=== PATIENT | female | born 1935 | race Caucasian/White ===

== ENCOUNTER 2016-11-02 10:00 | Outpatient (CLI) | payer OTHER ==
--- NOTE | 2016-11-02 12:16 | DIAGNOSTIC IMAGING REPORT ---
PROCEDURE: US BILATERAL CAROTID DOPPLER INDICATION: TIA TECHNIQUE: Color Doppler duplex imaging of the carotid and vertebral vessels. COMPARISON: None. FINDINGS: Minimal plaque bilaterally Right carotid system: No significant stenosis visualized. The waveforms are normal. Left carotid system: No significant stenosis visualized. The waveforms are normal. Vertebral System: Antegrade vertebral artery flow bilaterally. Right common carotid artery peak systolic velocity 71 cm/second. Right internal carotid artery peak systolic velocity 85 cm/second. Right external carotid artery peak systolic velocity 89 cm/second. Right frdrmhvl-ez-iuvxvo carotid artery ratio 0.8 Right vertebral artery peak systolic velocity 54 cm/second. Left common carotid artery peak systolic velocity 59 cm/second. Left internal carotid artery peak systolic velocity 92 cm/second. Left external carotid artery peak systolic velocity 78 cm/second. Left qwajejxe-py-vyfpmn carotid artery ratio 1.2 Left vertebral artery peak systolic velocity 51 cm/second. IMPRESSION: 1. No hemodynamically significant stenosis in either carotid system. 2. Antegrade vertebral artery flow bilaterally. Velocity criteria are extrapolated from diameter data as defined by the Society of Radiologists in Ultrasound Consensus Conference, Radiology 2003; 229; 340-346.
--- NOTE | 2016-11-02 12:16 | DIAGNOSTIC IMAGING REPORT ---
PROCEDURE: US BILATERAL CAROTID DOPPLER INDICATION: TIA TECHNIQUE: Color Doppler duplex imaging of the carotid and vertebral vessels. COMPARISON: None. FINDINGS: Minimal plaque bilaterally Right carotid system: No significant stenosis visualized. The waveforms are normal. Left carotid system: No significant stenosis visualized. The waveforms are normal. Vertebral System: Antegrade vertebral artery flow bilaterally. Right common carotid artery peak systolic velocity 71 cm/second. Right internal carotid artery peak systolic velocity 85 cm/second. Right external carotid artery peak systolic velocity 89 cm/second. Right sbclxgdm-od-gaqkeh carotid artery ratio 0.8 Right vertebral artery peak systolic velocity 54 cm/second. Left common carotid artery peak systolic velocity 59 cm/second. Left internal carotid artery peak systolic velocity 92 cm/second. Left external carotid artery peak systolic velocity 78 cm/second. Left adlspmyy-dr-szappg carotid artery ratio 1.2 Left vertebral artery peak systolic velocity 51 cm/second. IMPRESSION: 1. No hemodynamically significant stenosis in either carotid system. 2. Antegrade vertebral artery flow bilaterally. Velocity criteria are extrapolated from diameter data as defined by the Society of Radiologists in Ultrasound Consensus Conference, Radiology 2003; 229; 340-346.
== END 2016-11-02 23:00 ==
LOC: US SRH 10:00
DX: G45.9 Transient cerebral ischemic attack, unspecified (principal)

== ENCOUNTER 2016-12-12 19:07 | Emergency (ER) | payer OTHER ==
--- NOTE | 2016-12-12 22:00 | ED CLINICAL REPORT ---
Clinical Report - Physicians/Mid Levels [facility] [address] [place] [address] 12/12/2016 19:07 Patient: AMANUEL EATON Time Seen: 2009. Arrived- By private vehicle. Historian- patient. HISTORY OF PRESENT ILLNESS Chief Complaint: BLEEDING FROM EAR. Modifying factors. Not worsened by anything. Not relieved by anything. This started today and is now gone. The patient cannot recall the circumstances at the onset. Location- right ear. The patient has not had pain. The patient has a foreign body in the right ear (Wears hearing aids.). No ear pain or drainage, hearing loss or nasal discharge or congestion. No sinus pressure or ear trauma. Similar symptoms previously: None. Recent medical care: Not recently seen/assessed. REVIEW OF SYSTEMS No fever, chills, difficulty breathing, headache or skin rash. No abdominal pain, black stools or bloody stools. She has had easy bruising. All systems otherwise negative, except as recorded above. PAST HISTORY COPD - Chronic Obstructive Pulmonary Disease. Diabetes Mellitus. Congestive Heart Failure. Lumbar Radiculopathy. UTI - Urinary Tract Infection. Paresthesia. Superficial Thrombophlebitis. Bronchitis. Arthritis. GI Bleeding. Asthma. ADDITIONAL SURGERIES: Hip Prosthesis. Pacemaker. Tonsillectomy. Total Hip Replacement. SOCIAL HISTORY Never smoker. Occasional alcohol use. No drug use. ADDITIONAL NOTES The nursing notes have been reviewed. PHYSICAL EXAM Vital Signs: 12/12/2016 19:10 BP: 179/81. HR: 82. RR: 14. O2 saturation: 97%. Temp: 98.4 F. Have been reviewed. Hypertensive. Heart rate normal. Respiratory rate normal. Temperature normal. Oxygen saturation normal. Appearance: Alert. No acute distress. Eyes: Eyes normal inspection. No redness on the right or redness on the left. Ear (right): There is discharge in the external canal (No active bleeding). No tenderness of the auricle, pain with movement of the auricle, lymphadenopathy, erythema of the external canal or swelling of the external canal. Right tympanic membrane normal. Normal mastoid. Ear (left): Left ear normal. Left tympanic membrane normal. CVS: Abnormal rhythm, which is irregularly irregular. Heart sounds normal. Rate normal. Respiratory: No respiratory distress. Breath sounds normal. Abdomen: Soft and nontender. Skin: Normal skin color. No rash. Extremities: No lower extremity edema. Neuro: Oriented X 3. LABS, X-RAYS, AND EKG Laboratory Tests: UA-Culture if indicated: (MAGDA: 12/12/2016 21:00) ( MsgRcvd 12/12/2016 21:21) Final results Test Result Flag Units (Reference) URINE COLOR YELLOW URINE APPEARANCE SL CLOUDY URINE GLUCOSE NEGATIVE (NEGATIVE) URINE BILIRUBIN NEGATIVE (NEGATIVE) URINE KETONE NEGATIVE (NEGATIVE) URINE SPECIFIC GRAVITY 1.015 (1.010-1.030) URINE PH 6.5 (5.0-8.0) URINE PROTEIN NEGATIVE (NEGATIVE) URINE UROBILINOGEN 0.2 EU/dL (0.2-1.0) URINE NITRITE POSITIVE (NEGATIVE) URINE BLOOD TRACE-LYSED (NEGATIVE) URINE LEUK ESTERASE POSITIVE (NEGATIVE) URINE RBC NONE SEEN rbc/hpf (0-1) URINE WBC 25-50 wbc/hpf (0-1) URINE EPITHELIAL CELLS 0-1 EPI/hpf (0-5) URINE BACTERIA MANY (4+) (NONE SEEN) URINE COMMENT CULTURE INDICATED URINE CULTURES ARE SET-UP BASED ON THE FOLLOWING CRITERIA:POSITIVE NITRITEPOSITIVE LEUKOCYTE ESTERASEGREATER THAN 10 WHITE BLOOD CELLSMODERATE (2+) OR GREATER BACTERIA CBC w Diff: (MAGDA: 12/12/2016 20:05) ( MsgRcvd 12/12/2016 20:25) Final results Test Result Flag Units (Reference) WHITE BLOOD COUNT 7.3 K/uL (4.5-11.5) RED BLOOD COUNT 4.36 M/uL (4.00-5.20) HEMOGLOBIN 12.7 gm/dL (12.0-16.0) HEMATOCRIT 37.4 % (36.0-46.0) MEAN CELL VOLUME 86 fL (80-100) MEAN CORPUSCULAR HGB 29 pg (26-34) MEAN CORPUSCULAR HGB CONC 34 g/dL (31-37) RED CELL DISTRIBUTION WIDTH 15.8 H % (11.6-14.8) PLATELET COUNT 328 K/uL (150-400) NEUTROPHIL % 54.0 % (50-75) LYMPH % 29.0 % (25-40) MONO % 9.1 % (3-14) EOSINOPHIL % 6.8 H % (0-4) BASOPHIL % 1.1 % (0-2) PTT: (MAGDA: 12/12/2016 20:05) ( [facility] 12/12/2016 20:48) Final results Test Result Flag Units (Reference) APTT 41 H SECONDS (24-34) PT with INR: (MAGDA: 12/12/2016 20:05) ( [facility] 12/12/2016 20:29) Final results Test Result Flag Units (Reference) INR 2.6 H (0.8-1.2) Low Intensity Therapy: INR 1.5-2.0 PT range 18.5-23.1Mod.Intensity Therapy: INR 2.0-3.0 PT range 23.1-31.5High Intensity Therapy: INR 2.5-3.5 PT range 27.4-35.5High Intensity Therapy 2: INR 3.0-4.0 PT range 31.5-39.3 Lipase: (MAGDA: 12/12/2016 20:05) ( [facility] 12/12/2016 20:51) Final results Test Result Flag Units (Reference) LIPASE 133 U/L (73-393) AMYLASE 85 U/L (25-115) CMP: (MAGDA: 12/12/2016 20:05) ( [facility] 12/12/2016 20:38) Final results Test Result Flag Units (Reference) GLUCOSE 104 mg/dL (70-110) BUN 30 H mg/dL (7-18) CREATININE 1.0 mg/dL (0.6-1.3) Estimated GFR 56.28 mL/min Estimated GFR- >60 mL/min Note: Persistent reduction over 3 months in eGFR<60 mL/min/1.73 m2 defines CKD. Patients with eGFR values>=60 mL/min/1.73 m2 may also have CKD if evidence ofpersistent proteinuria. Additional information may be foundat www.kidney.org. SODIUM 134 L mmol/L (136-145) POTASSIUM 3.6 mmol/L (3.5-5.1) CHLORIDE 100 mmol/L (98-107) CARBON DIOXIDE 25 mmol/L (21-32) CALCIUM 9.2 mg/dL (8.5-10.1) TOTAL PROTEIN 7.5 g/dL (6.4-8.2) ALBUMIN 4.2 g/dL (3.3-5.0) BILIRUBIN, TOTAL 0.6 mg/dL (0.0-1.0) ALKALINE PHOSPHATASE 85 U/L (46-116) AST (SGOT) 23 U/L (15-37) ALT (SGPT) 29 U/L (12-78) . PROGRESS AND PROCEDURES Disposition: Discharged home in good and improved condition. Condition: good. CLINICAL IMPRESSION Oral anticoagulation therapy with therapeutic INR. Acute urinary tract infection with cystitis. (Bleeding from R ear canal Primary Dx). INSTRUCTIONS Your Current Medications: CONTINUE TAKING THE FOLLOWING MEDICATIONS: B-12 Oral : Tablet 2500 mcg, 1 tablet daily. D-3* : 5000IU daily. Diltiazem HCl Oral : Tablet 120 mg, 1 tablet daily. Hydrochlorothiazide Oral : 60mg daily. Losartan Potassium Oral : 100 mg daily. Pravastatin Sodium Oral : 40 mg daily. Warfarin Sodium Oral : 7.5 mg daily, 10mg on Sundays. Follow-up: Follow up with your doctor in about two days. Call for an appointment. Blood pressure screening was not performed during this visit because the patient has an active diagnosis of hypertension. (Electronically signed by Bin Oh Dr. 12/12/2016 22:02)
--- NOTE | 2016-12-12 22:01 | ED ORDER SUMMARY ---
..... Patient: AMANUEL EATON OrderSheet [facility] VisitID: [id number] [place] [address] 81y, F Registration Date/Time: 12/12/2016 ORDER SHEET Weight: 93.4 kg (stated) Allergies: Sulfa Antibiotics GENERAL ORDERS: Drone Operator (Continuous) (A-fib) (20:11 12/12/2016 JQuivey R.N. per protocol) (20:18 JQuivey R.N.) CBC w Diff Urgent (20:11 12/12/2016 JQuivey R.N. per protocol) (Ack 20:13 CHagerty ER Pediatric Sports Medicine Specialist) (20:18 ALawrence ER Tech1) CMP Urgent (20:11 12/12/2016 JQuivey R.N. per protocol) (Ack 20:13 CHagerty ER Pediatric Sports Medicine Specialist) (20:18 ALawrence ER Tech1) PT with INR Urgent (20:11 12/12/2016 JQuivey R.N. per protocol) (Ack 20:13 CHagerty ER Pediatric Sports Medicine Specialist) (20:18 ALawrence ER Tech1) PTT Urgent (20:27 12/12/2016 Shayy FELIPE) (20:28 CHagerty ER Pediatric Sports Medicine Specialist) (Ack 20:29 SRedmond) Amylase Urgent (20:27 12/12/2016 Shayy FELIPE) (20:28 CHagerty ER Pediatric Sports Medicine Specialist) (Ack 20:29 SRedmond) Lipase Urgent (20:27 12/12/2016 Shayy FELIPE) (20:28 CHagerty ER Pediatric Sports Medicine Specialist) (Ack 20:29 SRedmond) UA-Culture if indicated Urgent (21:05 12/12/2016 JQuivey R.N. per protocol) (Ack 21:06 SRedmond) (21:32 JQuivey R.N.) MEDICATION ORDERS: Ciprofloxacin PO 500 mg (NOW) (21:55 12/12/2016 Jose Stoddard) (Ack 22:03 JQuivey R.N.) (22:11 JQuivey R.N.) IV FLUIDS: IV Saline Lock (20:11 12/12/2016 JQuivey R.N. per protocol) (20:19 Courtney Choi) ORDER SHEET NOTES: [Electronically signed by Bin Oh Dr. (22:02 12/12/2016)] [Electronically signed by Abraham Recinos R.N. (22:48 12/12/2016)] [Electronically locked/signed by Abraham Recinos R.N. (22:48 12/12/2016)]
--- NOTE | 2016-12-12 22:01 | ED ORDER SUMMARY ---
..... Patient: AMANUEL EATON OrderSheet [facility] VisitID: [id number] [place] [address] 81y, F Registration Date/Time: 12/12/2016 ORDER SHEET Weight: 93.4 kg (stated) Allergies: Sulfa Antibiotics GENERAL ORDERS: Computer Forensic Examiner (Continuous) (A-fib) (20:11 12/12/2016 JQuivey R.N. per protocol) (20:18 JQuivey R.N.) CBC w Diff Urgent (20:11 12/12/2016 JQuivey R.N. per protocol) (Ack 20:13 CHagerty ER Supervisor Customer Complaint Service) (20:18 ALawrence ER Tech1) CMP Urgent (20:11 12/12/2016 JQuivey R.N. per protocol) (Ack 20:13 CHagerty ER Supervisor Customer Complaint Service) (20:18 ALawrence ER Tech1) PT with INR Urgent (20:11 12/12/2016 JQuivey R.N. per protocol) (Ack 20:13 CHagerty ER Supervisor Customer Complaint Service) (20:18 ALawrence ER Tech1) PTT Urgent (20:27 12/12/2016 Shayy FELIPE) (20:28 CHagerty ER Supervisor Customer Complaint Service) (Ack 20:29 SRedmond) Amylase Urgent (20:27 12/12/2016 Shayy FELIPE) (20:28 CHagerty ER Supervisor Customer Complaint Service) (Ack 20:29 SRedmond) Lipase Urgent (20:27 12/12/2016 Shayy FELIPE) (20:28 CHagerty ER Supervisor Customer Complaint Service) (Ack 20:29 SRedmond) UA-Culture if indicated Urgent (21:05 12/12/2016 JQuivey R.N. per protocol) (Ack 21:06 SRedmond) (21:32 JQuivey R.N.) MEDICATION ORDERS: Ciprofloxacin PO 500 mg (NOW) (21:55 12/12/2016 Jose Stoddard) (Ack 22:03 JQuivey R.N.) (22:11 JQuivey R.N.) IV FLUIDS: IV Saline Lock (20:11 12/12/2016 JQuivey R.N. per protocol) (20:19 Courtney Choi) ORDER SHEET NOTES: [Electronically signed by Bin Oh Dr. (22:02 12/12/2016)] [Electronically signed by Abraham Recinos R.N. (22:48 12/12/2016)] [Electronically locked/signed by Abraham Recinos R.N. (22:48 12/12/2016)]
--- NOTE | 2016-12-12 22:01 | ED NURSING NOTES ---
Clinical Report - Nurses [facility] [address] [place] [address] 12/12/2016 19:07 Patient: AMANUEL EATON TRIAGE Triage time 19:10. Chief Complaint: CONSTIPATION and BLACK STOOLS (Bleeding from right ear). --19:23 Joe Simms R.N. 19:10 12/12/16. BP: 179/81. HR: 82. RR: 14. O2 saturation: 97%. Temp: 98.4 F. --19:23 Joe Simms R.N. Chief Complaint: (Bleeding from right ear. bruise under right eye. INR high at last reading 3 wk ago.). --19:24 Joe Simms R.N. Weight: 93.4 kg stated. Height/Length: 66 inches Per Patient. BMI: 33.3. --22:14 Abraham Recinos R.N. Medications B-12 Oral (Tablet 2500 mcg) 1 tablet, daily. --20:14 Abraham Recinos R.N. D-3 5000IU, daily. --20:14 Abraham Recinos R.N. Warfarin Sodium Oral 7.5 mg, daily (10mg on Sundays). --20:15 Abraham Recinos R.N. Losartan Potassium Oral 100 mg, daily. --20:16 Abraham Recinos R.N. Pravastatin Sodium Oral 40 mg, daily. --20:16 Abraham Recinos R.N. Diltiazem HCl Oral (Tablet 120 mg) 1 tablet, daily. --20:16 Abraham Recinos R.N. Hydrochlorothiazide Oral 60mg , daily. --20:16 Abraham Recinos R.N. Medication/allergy information source: the patient. --19:23 Joe Simms R.N. Allergies Sulfa Antibiotics. --20:13 Abraham Recinos R.N. History Arrived by EMS. Historian: patient (Patient). PAST MEDICAL HX: Hypertension. Heart disease. Lung disease. ( Atrial Fibrilation, Asthma, CVA, Pacemaker). SOCIAL HX: Never smoker. Alcohol use; consumes wine by the glass occasionally. Last drink was less than 24 hours ago. --19:23 Joe Simms R.N. PROBLEMS: COPD - Chronic Obstructive Pulmonary Disease. Diabetes Mellitus. Congestive Heart Failure. Lumbar Radiculopathy. UTI - Urinary Tract Infection. Paresthesia. Superficial Thrombophlebitis. Bronchitis. Arthritis. GI Bleeding. Asthma. --20:17 Abraham Recinos R.N. ADDITIONAL SURGERIES: Hip Prosthesis. Pacemaker. Tonsillectomy. Total Hip Replacement. --20:18 Abraham Recinos R.N. Assessment The patient states feels the same. --19:23 Joe Simms R.N. Interventions Transported via stretcher. --19:23 Joe Simms R.N. PHYSICAL ASSESSMENT 20:05 1st contact with pt. Ambulatory to room. Patient gowned. GENERAL / NEURO / PSYCH: Alert. Oriented X 4. HEENT: No facial asymmetry noted. Mucous membranes are pink. RESPIRATORY: Respirations not labored. SKIN: Skin intact. Skin is warm and dry. Normal skin turgor. --20:05 Abraham Recinos R.N. 20:09 Active bleeding from right ear. --20:09 Abraham Recinos R.N. NURSING PROGRESS NOTES 20:04 1st contact with pt. Head of bed elevated. Two patient identifiers checked. Call light placed in reach. Bed placed in lowest position. Brakes of bed on. Patient ready for evaluation- chart flagged. --20:04 Abraham Recinos R.N. 20:04 founder and chief technical officer with pt for blood draw. --20:05 Abraham Recinos R.N. 20:04 12/12/2016 Site #1 started via IV in the left forearm with an 22g angiocath, with aseptic technique and good blood return. Saline lock flushed with 10 mL saline. --20:19 Abraham Recinos R.N. 20:48 Patient assisted to restroom. --20:48 Abraham Recinos R.N. 21:00. Patient ID band checked for patient name and birthdate: patient confirmed. Clean catch urine collected with return of yellow-colored cloudy urine; sample sent to lab for urinalysis. Specimen labeled in the presence of the patient. --21:06 Abraham Recinos R.N. 21:21 Cleaned dried blood from right ear, applied bacitracin to ear canal per Dr. Oh. --21:29 Abraham Recinos R.N. 22:08 12/12/2016 Ciprofloxacin (Ciprofloxacin) PO 500 mg given. Allergies verified and confirmed 5 rights. --22:11 Abraham Recinos R.N. 22:09. The patient is calm and resting quietly. RESPIRATORY: No respiratory distress. SKIN: Skin is warm and dry. Skin color within normal limits. --22:12 Abraham Recinos R.N. DISPOSITION / DISCHARGE Departure time: 22:11. Condition at departure: stable. No learning barriers present. Discharge instructions provided and reviewed with the patient. Reviewed medication(s) side effects, precautions, dosing and course information. Prescription(s) given to the patient. Patient verbalized understanding. Written instructions provided in Norwegian. The patient was discharged home and accompanied by family. She left the Emergency Department ambulatory and via private vehicle. Family member driving. FALL RISK ASSESSMENT: Fall risk assessment completed. No fall risk identified. --22:11 Abraham Recinos R.N. 21:26 12/12/16. BP: 177/87. HR: 77. RR: 17. O2 saturation: 100% on room air. --22:11 Abraham Recinos R.N. 22:05 12/12/2016 Site #1 removed upon discharge. Catheter intact. Bandage applied. --22:11 Abraham Recinos R.N. 21:26 12/12/16. Pain level now: 0/10. --22:48 Abraham Recinos R.N. Locked/Released at 12/12/2016 22:48 by Abraham Recinos R.N.
--- NOTE | 2016-12-12 22:01 | ED NURSING NOTES ---
Clinical Report - Nurses [facility] [address] [place] [address] 12/12/2016 19:07 Patient: AMANUEL EATON TRIAGE Triage time 19:10. Chief Complaint: CONSTIPATION and BLACK STOOLS (Bleeding from right ear). --19:23 Joe Simms R.N. 19:10 12/12/16. BP: 179/81. HR: 82. RR: 14. O2 saturation: 97%. Temp: 98.4 F. --19:23 Joe Simms R.N. Chief Complaint: (Bleeding from right ear. bruise under right eye. INR high at last reading 3 wk ago.). --19:24 Joe Simms R.N. Weight: 93.4 kg stated. Height/Length: 66 inches Per Patient. BMI: 33.3. --22:14 Abraham Recinos R.N. Medications B-12 Oral (Tablet 2500 mcg) 1 tablet, daily. --20:14 Abraham Recinos R.N. D-3 5000IU, daily. --20:14 Abraham Recinos R.N. Warfarin Sodium Oral 7.5 mg, daily (10mg on Sundays). --20:15 Abraham Recinos R.N. Losartan Potassium Oral 100 mg, daily. --20:16 Abraham Recinos R.N. Pravastatin Sodium Oral 40 mg, daily. --20:16 Abraham Recinos R.N. Diltiazem HCl Oral (Tablet 120 mg) 1 tablet, daily. --20:16 Abraham Recinos R.N. Hydrochlorothiazide Oral 60mg , daily. --20:16 Abraham Recinos R.N. Medication/allergy information source: the patient. --19:23 Joe Simms R.N. Allergies Sulfa Antibiotics. --20:13 Abraham Recinos R.N. History Arrived by EMS. Historian: patient (Patient). PAST MEDICAL HX: Hypertension. Heart disease. Lung disease. ( Atrial Fibrilation, Asthma, CVA, Pacemaker). SOCIAL HX: Never smoker. Alcohol use; consumes wine by the glass occasionally. Last drink was less than 24 hours ago. --19:23 Joe Simms R.N. PROBLEMS: COPD - Chronic Obstructive Pulmonary Disease. Diabetes Mellitus. Congestive Heart Failure. Lumbar Radiculopathy. UTI - Urinary Tract Infection. Paresthesia. Superficial Thrombophlebitis. Bronchitis. Arthritis. GI Bleeding. Asthma. --20:17 Abraham Recinos R.N. ADDITIONAL SURGERIES: Hip Prosthesis. Pacemaker. Tonsillectomy. Total Hip Replacement. --20:18 Abraham Recinos R.N. Assessment The patient states feels the same. --19:23 Joe Simms R.N. Interventions Transported via stretcher. --19:23 Joe Simms R.N. PHYSICAL ASSESSMENT 20:05 1st contact with pt. Ambulatory to room. Patient gowned. GENERAL / NEURO / PSYCH: Alert. Oriented X 4. HEENT: No facial asymmetry noted. Mucous membranes are pink. RESPIRATORY: Respirations not labored. SKIN: Skin intact. Skin is warm and dry. Normal skin turgor. --20:05 Abraham Recinos R.N. 20:09 Active bleeding from right ear. --20:09 Abraham Recinos R.N. NURSING PROGRESS NOTES 20:04 1st contact with pt. Head of bed elevated. Two patient identifiers checked. Call light placed in reach. Bed placed in lowest position. Brakes of bed on. Patient ready for evaluation- chart flagged. --20:04 Abraham Recinos R.N. 20:04 aviation safety technician with pt for blood draw. --20:05 Abraham Recinos R.N. 20:04 12/12/2016 Site #1 started via IV in the left forearm with an 22g angiocath, with aseptic technique and good blood return. Saline lock flushed with 10 mL saline. --20:19 Abraham Recinos R.N. 20:48 Patient assisted to restroom. --20:48 Abraham Recinos R.N. 21:00. Patient ID band checked for patient name and birthdate: patient confirmed. Clean catch urine collected with return of yellow-colored cloudy urine; sample sent to lab for urinalysis. Specimen labeled in the presence of the patient. --21:06 Abraham Recinos R.N. 21:21 Cleaned dried blood from right ear, applied bacitracin to ear canal per Dr. Oh. --21:29 Abraham Recinos R.N. 22:08 12/12/2016 Ciprofloxacin (Ciprofloxacin) PO 500 mg given. Allergies verified and confirmed 5 rights. --22:11 Abraham Recinos R.N. 22:09. The patient is calm and resting quietly. RESPIRATORY: No respiratory distress. SKIN: Skin is warm and dry. Skin color within normal limits. --22:12 Abraham Recinos R.N. DISPOSITION / DISCHARGE Departure time: 22:11. Condition at departure: stable. No learning barriers present. Discharge instructions provided and reviewed with the patient. Reviewed medication(s) side effects, precautions, dosing and course information. Prescription(s) given to the patient. Patient verbalized understanding. Written instructions provided in Slovenian. The patient was discharged home and accompanied by family. She left the Emergency Department ambulatory and via private vehicle. Family member driving. FALL RISK ASSESSMENT: Fall risk assessment completed. No fall risk identified. --22:11 Abraham Recinos R.N. 21:26 12/12/16. BP: 177/87. HR: 77. RR: 17. O2 saturation: 100% on room air. --22:11 Abraham Recinos R.N. 22:05 12/12/2016 Site #1 removed upon discharge. Catheter intact. Bandage applied. --22:11 Abraham Recinos R.N. 21:26 12/12/16. Pain level now: 0/10. --22:48 Abraham Recinos R.N. Locked/Released at 12/12/2016 22:48 by Abraham Recinos R.N.
--- NOTE | 2016-12-12 22:48 | ED MAR SUMMARY ---
..... Medication Administration Record [facility] [address] [place] [address] Patient: AMANUEL EATON Visit ID: [id number] 81y, F Weight: 93.4 kg Height/Length: 66 in BMI: 33.3 ALLERGIES: Sulfa Antibiotics Given 22:08 12/12/2016 Abraham Recinos R.N. Medication Administered: CIPROFLOXACIN [PO] (CIPROFLOXACIN), Dose: 500 mg PO. Medication Ordered: Ciprofloxacin PO 500 mg (NOW).
--- NOTE | 2016-12-12 22:48 | ED MAR SUMMARY ---
..... Medication Administration Record [facility] [address] [place] [address] Patient: AMANUEL EATON Visit ID: [id number] 81y, F Weight: 93.4 kg Height/Length: 66 in BMI: 33.3 ALLERGIES: Sulfa Antibiotics Given 22:08 12/12/2016 Abraham Recinos R.N. Medication Administered: CIPROFLOXACIN [PO] (CIPROFLOXACIN), Dose: 500 mg PO. Medication Ordered: Ciprofloxacin PO 500 mg (NOW).
--- NOTE | 2016-12-12 22:48 | ED MED RECONCILIATION SUMMARY ---
Patient: AMANUEL EATON Medication Reconciliation Report [facility] VisitID: [id number] [place] [address] 81y, F Registration Date/Time: 12/12/2016 Weight: 93.4 kg Height/Length: 66 in. BMI: 33.3 ALLERGIES: Sulfa Antibiotics The patient's Home Medications are listed below: CONTINUE TAKING THE FOLLOWING MEDICATIONS: B-12 Oral (2500 mcg) 1 tablet, daily D-3 5000IU, daily Diltiazem HCl Oral (120 mg) 1 tablet, daily Hydrochlorothiazide Oral 60mg , daily Losartan Potassium Oral 100 mg, daily Pravastatin Sodium Oral 40 mg, daily Warfarin Sodium Oral 7.5 mg, daily, 10mg on Sundays The source(s) of the original Home Medication information: patient The following Medications were given to the patient in the Emergency Department: Ciprofloxacin [PO] PO 500 mg, administered: 12/12/2016 10:08:00 PM The following Medications were prescribed to the patient: None.
--- NOTE | 2016-12-12 22:48 | ED MED RECONCILIATION SUMMARY ---
Patient: AMANUEL EATON Medication Reconciliation Report [facility] VisitID: [id number] [place] [address] 81y, F Registration Date/Time: 12/12/2016 Weight: 93.4 kg Height/Length: 66 in. BMI: 33.3 ALLERGIES: Sulfa Antibiotics The patient's Home Medications are listed below: CONTINUE TAKING THE FOLLOWING MEDICATIONS: B-12 Oral (2500 mcg) 1 tablet, daily D-3 5000IU, daily Diltiazem HCl Oral (120 mg) 1 tablet, daily Hydrochlorothiazide Oral 60mg , daily Losartan Potassium Oral 100 mg, daily Pravastatin Sodium Oral 40 mg, daily Warfarin Sodium Oral 7.5 mg, daily, 10mg on Sundays The source(s) of the original Home Medication information: patient The following Medications were given to the patient in the Emergency Department: Ciprofloxacin [PO] PO 500 mg, administered: 12/12/2016 10:08:00 PM The following Medications were prescribed to the patient: None.
--- NOTE | 2016-12-12 22:48 | ED DISCHARGE INSTRUCTIONS ---
Patient: AMANUEL EATON General Instructions [facility] VisitID: [id number] [place] [address] 81y, F Registration Date/Time: 12/12/2016 Oral anticoagulation therapy with therapeutic INR. Acute urinary tract infection with cystitis. (Bleeding from R ear canal Primary Dx). INSTRUCTIONS Your Current Medications: CONTINUE TAKING THE FOLLOWING MEDICATIONS: B-12 Oral : Tablet 2500 mcg, 1 tablet daily. D-3* : 5000IU daily. Diltiazem HCl Oral : Tablet 120 mg, 1 tablet daily. Hydrochlorothiazide Oral : 60mg daily. Losartan Potassium Oral : 100 mg daily. Pravastatin Sodium Oral : 40 mg daily. Warfarin Sodium Oral : 7.5 mg daily, 10mg on Sundays. Follow-up: Follow up with your doctor in about two days. Call for an appointment. Blood pressure screening was not performed during this visit because the patient has an active diagnosis of hypertension. ADDITIONAL INFORMATION Bladder Infection,Female (Adult) A bladder infection ("cystitis" or "UTI") usually causes a constant urge to urinate and a burning when passing urine. Urine may be cloudy, smelly or dark. There may be pain in the lower abdomen. A bladder infection occurs when bacteria from the vaginal area enter the bladder opening (urethra). This can occur from sexual intercourse, wearing tight clothing, dehydration and other factors. Home Care: Drink lots of fluids (at least 6-8 glasses a day, unless you must restrict fluids for other medical reasons). This will force the medicine into your urinary system and flush the bacteria out of your body. Avoid sexual intercourse until your symptoms are gone. Avoid caffeine, alcohol and spicy foods. These can irritate the bladder. A bladder infection is treated with antibiotics. You may also be given Pyridium (generic = phenazopyridine) to reduce the burning sensation. This medicine will cause your urine to become a bright orange color. The orange urine may stain clothing. You may wear a pad or panty-liner to protect clothing. Preventing Future Infections: Always wipe from front to back after a bowel movement. Keep the genital area clean and dry. Drink plenty of fluids each day to avoid dehydration. Both sexual partners should wash before intercourse. Urinate right after intercourse to flush out the bladder. Wear cotton underwear and cotton-lined panty hose; avoid tight-fitting pants. If you are on control pills and are having frequent bladder infections, discuss with your doctor. Follow Up: Return to this facility or see your doctor if ALL symptoms are not gone after three days of treatment. Get Prompt Medical Attention if any of the following occur: Fever of 100.4F (38C) or higher, or as directed by your healthcare provider No improvement by the third day of treatment Increasing back or abdominal pain Repeated vomiting; unable to keep medicine down Weakness, dizziness or fainting Vaginal discharge Pain, redness or swelling in the labia (outer vaginal area) You have been given the following additional information: Bladder Infection, Female (Adult) (Electronically signed by Bin Oh Dr. 12/12/2016 22:02)
== END 2016-12-12 22:11 | disposition home or self-care (01) ==
LOC: ED SRH 19:07
DX: H92.21 Otorrhagia, right ear (principal); N30.00 Acute cystitis without hematuria; Z79.01 Long term (current) use of anticoagulants; J44.9 Chronic obstructive pulmonary disease, unspecified; I50.9 Heart failure, unspecified; E11.9 Type 2 diabetes mellitus without complications; Z79.899 Other long term (current) drug therapy
CPT/HCPCS: 90004; 90074; 90100; 90148; 90469; 92235; 92530; 94001; 94060; 95059